=== PATIENT | male | born 1940 | race Caucasian/White ===

== ENCOUNTER → 2017-08-09 | Outpatient (CLI) | payer MEDICARE ==
[~2017-08-09] MED LIST: ASPIR 8181 M1 PO; C-1000 WITH R1000 MG PO; CO Q-10100 MG PO; EVENING PRIMR1000 MG PO; FLAX SEED OIL1000 MG PO; GRAPE SEED50 MG PO; L-LYSINE600 MG PO; MAGNESIUM500 MG PO; MILK THISTLE150 MG PO; TURMERIC 500 M1 EACH PO
== END ==
LOC: M.RAD 10:04
DX: J84.10 Pulmonary fibrosis, unspecified (principal)

== ENCOUNTER → 2017-08-16 | Outpatient (CLI) | payer MEDICARE ==
--- NOTE | 2017-08-20 17:58 | 24HR ---
[place] [address] HOLTER MONITOR REPORT Name: STEPAN VALDEZ Room: [facility].#: [id number] Admission: 08/16/17 Attend Phys: Nuno Camp Discharge: Date of : 44 Date of Service: 08/20/17 1129 Report #: [id number] THIS REPORT FOR: //name// [facility] Test Date: 2017-08-20 Test Time: 11:29:53 Pat Name: STEPAN VALDEZ Department: Room: Gender: Maid Housekeeper: : 1940 Requested By: Nuno Camp Order Number: [id number] Reading MD: Stepan Cade Interpretive Statements 24-hour Holter monitor The basic underlying rhythm is sinus with sinus arrhythmia. The mean heart rate was 63 bpm. The maximum heart rate was 109 bpm corresponding with sinus tachycardia. The minimum heart rate was 38 bpm corresponding with sinus bradycardia. There were frequent premature atrial complexes noted. There was a single atrial triplet noted. There was no evidence of significant nonsustained atrial arrhythmia. There were rare unifocal premature ventricular complexes noted. There was no significant nonsustained or sustained ventricular arrhythmia. There were no significant pauses and rhythm. There was no evidence of underlying atrial fibrillation or flutter. A diary was submitted with no symptoms recorded. Electronically Signed On 08-20-2017 17:58:06 PROPERTY PRESERVATION SPECIALIST by Stepan Cade [email or web address] <ELECTRONICALLY SIGNED> By: Stepan Cade MD, FAC 08/20/17 1758 1129 1129 Stepan Cade MD, LOCATED WITHIN [facility] /EPI
== END ==
LOC: M.CT 08:00
DX: R91.1 Solitary pulmonary nodule (principal); R00.1 Bradycardia, unspecified

== ENCOUNTER 2019-09-24 07:43 | Emergency (ER) | payer MEDICARE ==
[~2019-09-24] VITALS: Ht 180.3 cm; Wt 79.4 kg
[2019-09-24] MEDS ORDERED: ZINC SULFATE220 MG PO (08:07)
[2019-09-24 08:09] LABS: ABSOLUTE EOSINOPHILS 0.1 thou/uL (0.0-0.7); ABSOLUTE LYMPHOCYTES 0.9 thou/uL (0.8-5.3); ABSOLUTE MONOCYTES 0.5 thou/uL (0.0-1.2); ABSOLUTE NEUTROPHILS 3.1 thou/uL (1.6-8.1); BASOPHILS 0.5 %; EOSINOPHILS 2.3 %; HEMATOCRIT 43.7 % (42.0-52.0); HEMOGLOBIN 14.9 gm/dL (14.0-18.0); LYMPHOCYTES 19.2 %; MCH 33.6 pg (26.0-34.0); MCHC 34.1 g/dL (28.0-37.0); MCV 98.6 fL (80.0-100.0); MONOCYTES 10.1 %; MPV 9.3 fl. (7.2-11.1); NUCLEATED RBCS 0 /100WBC; PLATELET COUNT* 178 thou/uL (150-400); POLYS 67.9 %; RBC 4.43 mil/uL (4.50-6.00); RDW-CV 13.2 % (10.5-14.5); WBC 4.6 thou/uL (4.0-11.0)
[2019-09-24 08:18] LABS: CALCIUM 8.2 mg/dL (8.5-10.1); POTASSIUM 3.9 mmol/L (3.5-5.1)
[2019-09-24 08:30] LABS: APTT 28.3 Seconds (25.0-31.3); PROTIME 10.4 Seconds (9.20-11.50)
[2019-09-24 08:32] LABS: ALBUMIN 3.6 g/dL (3.4-5.0); CK-MB MASS 2.8 ng/mL (<0.5-3.6); TOTAL BILIRUBIN 0.5 mg/dL (<0.1-1.0); TOTAL PROTEIN 7.6 g/dL (6.4-8.2)
[2019-09-24 10:23] VITALS: BP 124/63
--- NOTE | 2019-09-24 11:20 | EKG ---
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[place] : 1940 Requested By: David Chris Order Number: [id number] MD: Stepan Cade Measurements Intervals [place] Rate: 53 P: 76 CO: 163 QRS: 61 QRSD: 93 T: 72 QT: 446 QTc: 419 Interpretive Statements Sinus bradycardia Atrial premature complexes Compared to ECG 10/24/2017 12:08:58 Atrial premature complex(es) now present Electronically Signed On 09-24-2019 11:19:54 MOLDING MACHINE SETTER by Stepan Cade [email or web address] <ELECTRONICALLY SIGNED> By: Stepan Cade MD, FAC 09/24/19 1119 0747 0747 Stepan Cade MD, [facility] /EPI
== END 2019-09-24 10:24 | disposition home or self-care (01) ==
LOC: M.ERS 07:43
PROVIDERS: Family Medicine
DX: R55 Syncope and collapse (principal)